=== PATIENT | male | born 1970 | race Caucasian/White ===

== ENCOUNTER 2022-05-25 17:30 | Outpatient (CLI) | payer MEDICARE | END 2022-05-25 17:31 | disposition home or self-care (01) | LOC: SLEEPLAB 17:30 | PROVIDERS: ATTEND Student in an Organized Health Care Education/Training Program | DX: G47.33 Obstructive sleep apnea (adult) (pediatric) (principal); E66.9 Obesity, unspecified | CPT/HCPCS: 95800 ==